=== PATIENT | male | born 1985 | race Caucasian/White ===

== ENCOUNTER 2017-03-08 02:45 | Inpatient (IN) | payer OTHER ==
[~2017-03-08] VITALS: Ht 182.9 cm; Wt 92.2 kg
[~2017-03-08 02:45] MED LIST: LORT7.5T3 PO; Z.0.NO CURRENT MEDS
[2017-03-08 02:58] VITALS: BP 118/75; PULSE 89; RESP 20; TEMP 98.9; O2SAT 96
[2017-03-08] MEDS ORDERED: SODIUM CHLOR 0.9% 1000 ML INJ 1,000 ML IV SCH (02:58)
[2017-03-08] MEDS ORDERED: DIPHTH/TETANUS/ACEL PERTUSSIS (BOOSTER) 0.5 ML VIAL/PFS IM ONE (03:00)
[2017-03-08] MEDS ORDERED: SODIUM CHLORIDE 0.9% FLUSH 10 ML FLUSH IVF PRN (03:00)
[2017-03-08] MEDS ORDERED: MORPHINE SULFATE 4 MG/ML INJ IV ONE (03:00)
[2017-03-08] MEDS ORDERED: ONDANSETRON HCL 4 MG/2 ML VIAL IVP ONE (03:00)
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
[2017-03-08 03:20] LABS: AUTOMATED NEUTROPHIL # 4.8 TH/MM3 (1.8-7.7); BASOPHIL # 0.1 TH/MM3 (0-0.2); BASOPHIL % 0.7 % (0.0-2.0); EOSINOPHIL # 0.2 TH/MM3 (0-0.4); HEMATOCRIT 44.4 % (39.0-51.0); HEMO FLAGS DIFF FINAL; LYMPH % 33.2 % (9.0-44.0); LYMPHOCYTE # 2.9 TH/MM3 (1.0-4.8); MEAN CELL VOLUME 93.6 FL (80.0-100.0); MEAN CORPUSCULAR HEMOGLOBIN 31.2 PG (27.0-34.0); MEAN CORPUSCULAR HGB CONC 33.4 % (32.0-36.0); MONO % 9.9 % (0.0-8.0); NEUT % 54.2 % (16.0-70.0); PLATELET COUNT 247 TH/MM3 (150-450); RED BLOOD COUNT 4.74 MIL/MM3 (4.50-5.90); RED CELL DISTRIBUTION WIDTH 13.5 % (11.6-17.2); WHITE BLOOD COUNT 8.8 TH/MM3 (4.0-11.0)
[2017-03-08 03:44] LABS: APTT (PATIENT) 21.7 SEC (24.3-30.1); PROTHROMBIN TIME - PATIENT 10.7 SEC (9.8-11.6)
[2017-03-08 03:46] LABS: BICARBONATE 28.3 MEQ/L (21.0-32.0); POTASSIUM 3.6 MEQ/L (3.5-5.1)
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
[2017-03-08 05:00] VITALS: BP 119/53; PULSE 92; RESP 14; O2SAT 95
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
[2017-03-08] MEDS ORDERED: IOHEXOL 350 MG/ML 10 ML VIAL (for RAD DIAG) IV ONE (05:43)
[2017-03-08] MEDS ORDERED: ACETAMINOPHEN 650 MG SUPP RECTAL PRN (05:45)
[2017-03-08] MEDS ORDERED: MORPHINE SULFATE 4 MG/ML INJ IV PUSH PRN ×2 (05:45→11:45)
[2017-03-08] MEDS ORDERED: ACETAMINOPHEN 325 MG TAB PO PRN ×2 (05:45→08:15)
[2017-03-08] MEDS ORDERED: ONDANSETRON HCL 4 MG/2 ML VIAL IV PRN (05:45)
[2017-03-08 06:05] VITALS: O2SAT 95
[2017-03-08] MEDS: NS + KCL 20 MEQ INJ 1,000 ML IV SCH ×3 (06:21→21:02)
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
[2017-03-08 07:24] VITALS: BP 102/55; TEMP 99
[2017-03-08] MEDS ORDERED: MIDAZOLAM HCL 2 MG/2 ML VIAL ONE (07:45)
[2017-03-08] MEDS ORDERED: fentaNYL CITRATE 250 MCG/5 ML AMP ONE ×2 (07:45→11:50)
[2017-03-08] MEDS ORDERED: ACETAMINOPHEN 1000 MG/100 ML VIAL IV ONE (07:45)
[2017-03-08] MEDS ORDERED: FAMOTIDINE 20 MG/2 ML VIAL ONE (07:45)
[2017-03-08] MEDS ORDERED: ARTIFICIAL TEARS OPTH OINT 3.5 APPLIC/3.5 GM TUBO ONE (07:45)
[2017-03-08] MEDS ORDERED: ENALAPRILAT 1.25 MG/ML VIAL IV PRN (08:15)
[2017-03-08] MEDS ORDERED: SODIUM CHLORIDE 0.9% FLUSH 10 ML FLUSH IV FLUSH PRN (08:15)
[2017-03-08] MEDS ORDERED: MAGNESIUM HYDROXIDE SUSP 30 ML CUP PO PRN (08:15)
[2017-03-08] MEDS: BACITRACIN TOP OINT 15 GM TUBE TOP SCH ×2 (09:00→21:00)
[2017-03-08] MEDS ORDERED: PANTOPRAZOLE SODIUM 40 MG VIAL IVP SCH (09:00)
[2017-03-08] MEDS ORDERED: ceFAZolin INJ 1,000 MG VIAL IV ONE (09:14)
[2017-03-08] MEDS ORDERED: VANCOMYCIN HCL 1000 MG VIAL OTHER ONE (09:20)
[2017-03-08] MEDS ORDERED: TRANEXAMIC ACID INJ 1,425 MG in SODIUM CHLORIDE 0.9% INJ 100 ML IV SCH ×2 (09:30→16:00)
[2017-03-08] MEDS ORDERED: GENTAMICIN SULFATE 80 MG/2 ML VIAL IRRIGATION ONE (09:34)
[2017-03-08 10:43] LABS: HEMATOCRIT 35.7 % (39.0-51.0); REVIEW FLAG FINAL
[2017-03-08] MEDS ORDERED: PROPOFOL 200 MG/20 ML AMP IV ONE (11:24)
[2017-03-08] MEDS ORDERED: NEOSTIGMINE 3 MG/3 ML SYR IV ONE (11:25)
[2017-03-08] MEDS ORDERED: PHENYLEPH/NS 1000 MCG/10 ML SYR IV ONE (11:25)
[2017-03-08] MEDS ORDERED: LACTATED RINGER'S 1000 ML INJ 4,000 ML IV ONE (11:25)
[2017-03-08] MEDS ORDERED: ONDANSETRON HCL 4 MG/2 ML VIAL IV PUSH ONE (11:25)
[2017-03-08] MEDS ORDERED: ePHEDrine/NS 25 MG/5 ML SYR IV ONE (11:25)
[2017-03-08] MEDS ORDERED: ERGOCALCIFEROL (VIT D2) 50,000 UNIT CAP PO ONE (11:45)
[2017-03-08] MEDS ORDERED: SODIUM CHLORIDE 0.9% FLUSH 5 ML FLUSH IVF PRN (11:45)
[2017-03-08] MEDS ORDERED: ACETAMINOPHEN/HYDROcodone 325 MG/7.5 MG TAB PO PRN (11:45)
--- NOTE | 2017-03-08 11:52 | PD.OP ---
cc: Roosevelt Gore MD Operative Report Date of Surgery: Mar 08, 2017 Preoperative Diagnosis: Right Midshaft femur fracture with bent plate and screws from previous surgery Postoperative Diagnosis: Procedure: Complex removal of hardware Intramedullary nail fixation right femur Anesthesia: Gen. Surgeon: Roosevelt Gore Search Coordinator(s): JONATAN Styles PA-C The surgical procedure was assisted by my physician hospital clinic assistant. My P.A. presence was necessary throughout this case for the manipulation and positioning of the surgical extremity. My P.A. was assisting me throughout the duration of this procedure. The skill set of a physician hospital clinic assistant was medically necessary to complete this procedure. During the surgical case the locate technician was working at the back table and the physician hospital clinic assistant was directly assisting me. Operation and Findings: Implants used: [12]mm x [440]mm Synthes TFNA troch nail Plan of activity: 50% weightbearing Patient was seen and evaluated preoperatively. The patient has significant hip pain from right femur fracture with a bent plate. The risk and benefits of surgery were discussed in depth with the patient to include bleeding, infection , nonunion, malunion, need for hip replacement, painful hardware, as well as medical competitions including blood clots, stroke, heart attack, and . Informed consent was obtained. Operative site was marked. Patient was brought to the operating room and placed on fracture table. IV sedation was administered by anesthesiologist. Timeout procedure was performed. Hip and leg were prepped with alcohol followed by DuraPrep and draped in the usual sterile fashion. IV antibiotics were given prior to incision. Procedure began with removal of deep hardware. A 10 inch incision was made through the lateral thigh through previous scar. Vastus lateralis was elevated anteriorly. There was significant scar tissue around the plate. Scar tissue was incised. There was also significant heterotopic bone. Rongeurs and osteotomes were used to remove the bone around the plate. The plate screws were now exposed. Using the screws was now loosened. The screws were now removed using a drill. One of the screws broke. 2 additional lag screws were also removed. At this point attention was turned to removal of plate. The osteotomes were placed underneath the plate. Getting the plate off of the lag screw in the femoral head was very difficult. Once the plate was mobilized it was removed. Using the broken screw removal set the broken screw was also removed. At this point attention was turned to removal of the lag screw for the femoral head. Attempt was made to use screwdrivers. The screw was very difficult to move. Large trial findings were now placed over the screw to aid in loosening. A screwdriver was used to remove the screw. Fluoroscopy confirmed removal of all hardware. Next attention was turned towards reduction of fracture. Traction was applied. The leg was manipulated to achieve reduction. Excellent reduction was achieved. Fluoroscopy was used to confirm reduction. A 2 inch incision was made proximal to the trochanter. Subcutaneous tissue was dissected bluntly. Guidepin was placed at the tip of the trochanter and advanced into the femoral canal. Fluoroscopy confirmed appropriate guidepin placement. A opening reamer was placed over the guidepin. A long ball tipped guide pin was now placed down the femoral canal into the center of the distal femur. The nail length was now measured. Fluoroscopy confirmed appropriate guidepin placement. Flexible reamers were now passed over the guidepin to ream the intramedullary canal. The Synthes TFNA nail was attached to the insertion handle. Nail was now placed over the guidepin into the femoral canal. Fluoroscopy confirmed appropriate nail placement. A second incision was made over the lateral thigh. Cannulas were placed through the insertion handle down to the femur. Guidepin was now placed through the femoral nail into the center of the femoral head. Fluoroscopy confirmed appropriate guidepin placement. Screw length was measured. Cannulated drill was placed over the guidepin. Appropriate length lag screw was now placed. The lag screw was locked in static mode. At this point, traction was released and compression was applied across the femoral shaft fracture. Next, using perfect table mountain technique two distal interlocking screws were placed. Screw holes were predrilled and screw lengths were measured. Final fluoroscopy revealed well aligned fracture with well-placed hardware. Incision was closed with #1 Vicryl, 3-0 Vicryl and faheem. Sterile dressings were applied. Patient was awakened and transferred to recovery room. Roosevelt Gore MD Mar 08, 2017 11:52
[2017-03-08 12:20] LABS: HEMATOCRIT 35.5 % (39.0-51.0); REVIEW FLAG FINAL
[2017-03-08] MEDS ORDERED: DO NOT ADM ANY ANTICOAGULANT DRUGS PRN (12:45)
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
[2017-03-08] MEDS ORDERED: *MEPERIDINE 25 MG INJ VIAL PERIprocedural Use ONLY ONE (14:03)
[2017-03-08] MEDS ORDERED: *morphine SULFATE 8 MG/ML PERIprocedure ONLY ONE ×3 (14:28→15:03)
[2017-03-08] MEDS: SODIUM CHLORIDE 0.9% FLUSH 10 ML FLUSH IV FLUSH SCH ×2 (16:10→21:00)
--- NOTE | 2017-03-08 16:21 | RADRPT ---
EXAM DATE/TIME: 03/08/2017 11:22 [facility] COMPARISON: FEMUR RIGHT (AP & LAT/2VWS), March 08, 2017, 3:17. INDICATIONS : Right femur fracture, old hardware removal, and new placement of intermedullary nail. OR. MEDICAL HISTORY : Cardiovascular disease. SURGICAL HISTORY : Femur fracture repair, right. ENCOUNTER: Initial ACUITY: 1 day PAIN SCORE: Non-responsive. LOCATION: Right femur FINDINGS: 6 intraoperative spot images of the right femur. Right hip screw and intramedullary cordell in place acro ss fracture. 2 distal transfixing screws. CONCLUSION: Intraoperative images showing right femur fracture with new internal fixation hardware in place. Heri Dowsn MD on March 08, 2017 at 16:19 Board Certified Radiologist. This report was verified electronically.
[2017-03-08] MEDS: ceFAZolin 2 GM PREMIX 50 ML IV SCH (17:00)
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
[2017-03-08 17:59] LABS: HEMATOCRIT 35.4 % (39.0-51.0); REVIEW FLAG FINAL
[2017-03-08] MEDS: CALCIUM/VITAMIN D 250 MG/125 U TAB PO SCH ×2 (18:00→21:01)
[2017-03-08] MEDS: ONDANSETRON HCL 4 MG/2 ML VIAL IV PRN ×2 (18:27→23:27)
[2017-03-08] MEDS: SODIUM CHLORIDE 0.9% FLUSH 10 ML FLUSH IVF PRN (18:28)
[2017-03-08 19:03] VITALS: BP 124/65; PULSE 99; RESP 22; TEMP 97.7; O2SAT 97
[2017-03-08] MEDS: DOCUSATE SODIUM 50 MG/SENNA 8.6 MG TAB PO SCH (21:00)
[2017-03-08] MEDS: SODIUM CHLORIDE 0.9% FLUSH 5 ML FLUSH IVF SCH (21:00)
[2017-03-08] MEDS: FOLIC ACID 1 MG TAB PO SCH (21:01)
[2017-03-08] MEDS: MULTIVITAMIN TAB PO SCH (21:01)
[2017-03-08] MEDS: THIAMINE HCL 100 MG TAB PO SCH (21:01)
[2017-03-08] MEDS: MORPHINE SULFATE 8 MG/ML INJ IV PUSH PRN (23:28)
[2017-03-09] VITALS (7 sets, daily range): BP systolic 128–151; BP diastolic 66–75; PULSE 88–106; RESP 16–18; TEMP 96.5–98.9; O2SAT 94–100
[2017-03-09] MEDS: ceFAZolin 2 GM PREMIX 50 ML IV SCH ×3 (01:19→16:19)
[2017-03-09] MEDS: ACETAMINOPHEN/HYDROcodone 325 MG/10 MG TAB PO PRN ×3 (01:33→10:05)
[2017-03-09] MEDS: NS + KCL 20 MEQ INJ 1,000 ML IV SCH (05:23)
[2017-03-09 07:14] LABS: BASOPHIL % 0.3 % (0.0-2.0); EOSINOPHIL % 0.2 % (0.0-4.0); HEMATOCRIT 31.4 % (39.0-51.0); HEMO FLAGS DIFF FINAL; LYMPH % 9.8 % (9.0-44.0); LYMPHOCYTE # 0.8 TH/MM3 (1.0-4.8); MEAN CELL VOLUME 92.9 FL (80.0-100.0); MEAN CORPUSCULAR HEMOGLOBIN 32.1 PG (27.0-34.0); MEAN CORPUSCULAR HGB CONC 34.5 % (32.0-36.0); MONO % 15.9 % (0.0-8.0); NEUT % 73.8 % (16.0-70.0); PLATELET COUNT 212 TH/MM3 (150-450); RED BLOOD COUNT 3.38 MIL/MM3 (4.50-5.90); RED CELL DISTRIBUTION WIDTH 13.8 % (11.6-17.2); WHITE BLOOD COUNT 8.1 TH/MM3 (4.0-11.0)
[2017-03-09] MEDS ORDERED: HYDR-3583 PO (07:28)
[2017-03-09] MEDS ORDERED: XARE10TA PO (07:28)
[2017-03-09] MEDS ORDERED: WALKER/ADULT/FO1 MIS (07:28)
--- NOTE | 2017-03-09 07:32 | PD.ORT.PN ---
Subjective Subjective Remarks POD 1 s/p WILMER and IMN right femur doing well. reports pain. has not been out of bed yet Objective Vitals Vital Signs Date Time Temp Pulse Resp B/P Pulse Ox O2 Delivery O2 Flow Rate FiO2 03/09/17 04:00 Room Air 03/09/17 00:00 Room Air 03/09/17 00:00 98.7 95 17 134/67 99 03/08/17 20:00 Room Air 03/08/17 19:03 97.7 99 22 124/65 97 03/08/17 18:00 98.2 88 16 136/64 100 Room Air 03/08/17 17:30 93 16 130/63 100 Room Air 03/08/17 17:15 100 16 121/65 97 Room Air 03/08/17 17:00 93 16 126/67 97 Room Air 03/08/17 16:45 91 15 127/58 97 Room Air 03/08/17 16:15 98 15 164/70 99 Room Air 03/08/17 16:00 98 16 164/70 99 Room Air 03/08/17 15:45 99 16 158/72 98 Room Air 03/08/17 15:15 97 17 158/70 98 Room Air 03/08/17 15:00 104 15 144/66 98 Room Air 03/08/17 14:45 107 15 145/56 98 Room Air 03/08/17 14:30 105 15 154/69 98 Room Air 03/08/17 14:15 101 15 174/77 94 Room Air 03/08/17 14:04 98.6 119 15 164/113 96 Room Air I/O 03/08/17 03/08/17 03/08/17 03/09/17 03/09/17 03/09/17 07:00 15:00 23:00 07:00 15:00 23:00 Intake Total 1000 ml 4000 ml 2171 ml 834 ml Output Total 2000 ml 3150 ml 950 ml Balance 1000 ml 2000 ml -979 ml -116 ml Intake Oral 480 ml IV Total 1000 ml 1691 ml 834 ml Other 4000 ml Output Urine Total 1200 ml 3150 ml 950 ml Estimated Blood Loss 800 ml # Bowel Movements 0 Result Diagram: 03/09/17 0631 03/08/17 0300 Imaging Last 24 hours Impressions Pelvis X-Ray 03/08/17 0258 Signed Impressions: Service Date/Time: March 03:13 - CONCLUSION: No acute pelvic injury Bunny Curtis MD Head CT 03/08/17257 Signed Impressions: Service Date/Time: March 04:38 - CONCLUSION: No acute intracranial injury Bunny Curtis MD Chest X-Ray 03/08/17257 Signed Impressions: Service Date/Time: March 03:26 - CONCLUSION: No acute disease. Bunny Curtis MD Cervical Spine CT 03/08/17257 Signed Impressions: Service Date/Time: March 04:41 - CONCLUSION: No acute bony injury in the cervical spine. Bunny Curtis MD Abdomen/Pelvis CT 03/08/17257 Signed Impressions: Service Date/Time: March 04:44 - CONCLUSION: No acute injury in the abdomen or pelvis. Bunny Curtis MD Maxillofacial CT 03/08/17 0000 Signed Impressions: Service Date/Time: March 04:41 - CONCLUSION: No evidence of facial fracture Bunny Curtis MD Femur X-Ray 03/08/17 0000 Signed Impressions: Service Date/Time: March 03:17 - CONCLUSION: Proximal femoral fracture fixation. Bunny Curtis MD Objective Remarks RLE: moderate amount of serosanguinous drainage right leg dressings. NVI distally. neg zacarias. Assessment & Plan Assessment and Plan 1) Right Periprosthetic Femur Fx s/p Removal of HW and IMN Right Femur - POD 1 -50%WB -daily dressing changes -DVT prophylaxis with lovenox and transition to xarelto on discharge -plan for discharge Sun/Mon depending on progress with therapy -f/u with [facility] or [facility] in 2 weeks Adalberto Tierney Mar 09, 2017 07:32
[2017-03-09 07:34] LABS: ALT (GPT) 39 U/L (12-78); ANION GAP 6 MEQ/L (5-15); AST (GOT) 64 U/L (15-37); BICARBONATE 31.3 MEQ/L (21.0-32.0); BLOOD UREA NITROGEN 11 MG/DL (7-18); CHLORIDE 103 MEQ/L (98-107); GLOMERULAR FILTRATION RATE 107 ML/MIN (>89); SODIUM (NA) 140 MEQ/L (136-145)
[2017-03-09 07:36] LABS: ALKALINE PHOSPHATASE 41 U/L (45-117); TOTAL BILIRUBIN ADULT 0.9 MG/DL (0.2-1.0)
[2017-03-09] MEDS: SODIUM CHLORIDE 0.9% FLUSH 10 ML FLUSH IV FLUSH SCH ×2 (08:18→21:31)
[2017-03-09] MEDS: SODIUM CHLORIDE 0.9% FLUSH 5 ML FLUSH IVF SCH ×2 (08:19→21:00)
[2017-03-09] MEDS: THIAMINE HCL 100 MG TAB PO SCH (08:19)
[2017-03-09] MEDS: CHOLECALCIFEROL (VIT D3) 5000 UNIT CAP PO SCH (08:19)
[2017-03-09] MEDS: FAMOTIDINE 20 MG TAB PO SCH ×2 (08:19→21:31)
[2017-03-09] MEDS: CALCIUM/VITAMIN D 250 MG/125 U TAB PO SCH ×3 (08:19→17:17)
[2017-03-09] MEDS: MULTIVITAMIN TAB PO SCH (08:19)
[2017-03-09] MEDS: FOLIC ACID 1 MG TAB PO SCH (08:19)
[2017-03-09] MEDS: BACITRACIN TOP OINT 15 GM TUBE TOP SCH ×2 (08:20→21:00)
[2017-03-09] MEDS: MORPHINE SULFATE 8 MG/ML INJ IV PUSH PRN ×2 (08:20→11:49)
[2017-03-09] MEDS: ONDANSETRON HCL 4 MG/2 ML VIAL IV PRN (08:20)
[2017-03-09] MEDS: DOCUSATE SODIUM 50 MG/SENNA 8.6 MG TAB PO SCH ×2 (08:37→21:31)
[2017-03-09] MEDS: METHOCARBAMOL 500 MG TAB PO SCH ×3 (08:37→21:31)
[2017-03-09] MEDS ORDERED: oxyCODONE/ACETAMINOPHEN 5 MG/325 MG TAB PO PRN (10:15)
[2017-03-09] MEDS: SODIUM CHLORIDE 0.9% FLUSH 10 ML FLUSH IVF PRN ×2 (11:50→17:18)
[2017-03-09] MEDS: oxyCODONE/ACETAMINOPHEN 5 MG/325 MG TAB PO PRN ×3 (13:05→21:31)
[2017-03-09] MEDS: ENOXAPARIN SODIUM 40 MG/0.4 ML SYRINGE SQ SCH (13:06)
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
[2017-03-09] MEDS: diphenhydrAMINE HCL 25 MG CAP PO PRN (17:17)
[2017-03-09] MEDS ORDERED: CRUT48MI (18:46)
--- NOTE | 2017-03-09 19:13 | HHI.PR ---
Subjective Patient symptoms today c/o pain in scrotum. denies fevers, chill Objective Vital Signs Vital Signs Date Time Temp Pulse Resp B/P Pulse Ox O2 Delivery O2 Flow Rate FiO2 03/09/17 19:09 Room Air 03/09/17 18:40 99 21 03/09/17 16:00 96.5 106 16 128/66 94 03/09/17 12:00 98.9 89 16 140/75 99 03/09/17 10:35 100 03/09/17 08:40 Room Air 03/09/17 08:00 97.6 96 16 129/75 100 03/09/17 04:00 Room Air 03/09/17 00:00 Room Air 03/09/17 00:00 98.7 95 17 134/67 99 03/08/17 20:00 Room Air Intake & Output 03/09/17 03/09/17 07:00 19:00 Intake Total 2255 ml 720 ml Output Total 3450 ml Balance -1195 ml 720 ml Intake Oral 480 ml 720 ml IV Total 1775 ml Output Urine Total 3450 ml # Voids 4 # Bowel Movements 0 0 Result Diagram: 03/09/17 0631 03/09/17 0631 Objective Remarks NAD. A/O x 3 right scrotal laceration with clean edges, sutures in place. No drainage or erythema. Testes normal size and consistency Medications and IVs Current Medications Medications (Trade) Dose Ordered Sig/Isidoro Route Start Time Stop Time Status Last Admin (Tylenol Supp) 650 mg Q4H PRN RECTAL 03/08/17 05:45 (NS Flush) 2 ml BID IV FLUSH 03/08/17 09:00 03/09/17 08:18 (NS Flush) 2 ml UNSCH PRN IVF 03/08/17 05:45 03/09/17 17:18 (Tylenol) 650 mg Q6H PRN PO 03/08/17 08:15 (Vasotec Inj) 1.25 mg Q8H PRN IV 03/08/17 08:15 (Zofran Inj) 4 mg Q6H PRN IV 03/08/17 08:15 03/09/17 08:20 (Baciguent Oint) 1 applic BID TOP 03/08/17 09:00 03/09/17 08:20 (Folate) 1 mg DAILY PO 03/08/17 09:00 03/11/17 08:59 03/09/17 08:19 (Vitamin B1) 100 mg DAILY PO 03/08/17 09:00 03/11/17 08:59 03/09/17 08:19 (Theragran) 1 tab DAILY PO 03/08/17 09:00 03/11/17 08:59 03/09/17 08:19 (Milk Of Magnesia Liq) 30 ml Q6H PRN PO 03/08/17 08:15 03/09/17 08:18 (Cherise-Colace) 2 tab BID PO 03/08/17 09:00 03/09/17 08:37 (NS Flush) 2 ml UNSCH PRN IVF 03/08/17 11:45 (NS Flush) 2 ml BID IVF 03/08/17 21:00 (Lovenox Inj) 40 mg Q24H SQ 03/09/17 13:00 03/09/17 13:06 (Oscal-D 250-125) 250 mg TID PO 03/08/17 13:00 03/09/17 17:17 (Benadryl) 25 mg Q6H PRN PO 03/08/17 11:45 03/09/17 17:17 Cholecalciferol 5000 units 5,000 units DAILY PO 03/09/17 09:00 03/09/17 08:19 (Ancef 2 Gm Premix) 50 ml @ 100 mls/hr Q8H IV 03/08/17 17:00 03/10/17 09:29 03/09/17 16:19 (Morphine Inj) 5 mg Q3H PRN IV PUSH 03/08/17 12:15 03/09/17 11:49 (Robaxin) 500 mg Q8HR PO 03/09/17 07:15 03/09/17 16:16 (Pepcid) 20 mg BID PO 03/09/17 09:00 03/09/17 08:19 (Percocet 5-325 Mg) 1 tab Q4H PRN PO 03/09/17 10:15 (Percocet 5-325 Mg) 2 tab Q4H PRN PO 03/09/17 10:15 03/09/17 17:17 Assessment and Plan Assessment and Plan s/p Repair of Right Scrotal Laceration -Ok to d/c per Urology -May shower. No standing water -F/U in 10 days for suture removal. Guillaume Mccormick MD Mar 09, 2017 19:13
[2017-03-10 00:36] VITALS: BP 116/57; PULSE 84; RESP 18; TEMP 96.8; O2SAT 96
[2017-03-10] MEDS: oxyCODONE/ACETAMINOPHEN 5 MG/325 MG TAB PO PRN ×6 (01:21→23:27)
[2017-03-10] MEDS: diphenhydrAMINE HCL 25 MG CAP PO PRN ×4 (01:21→22:32)
[2017-03-10] MEDS: ceFAZolin 2 GM PREMIX 50 ML IV SCH ×2 (05:32→12:41)
[2017-03-10] MEDS: METHOCARBAMOL 500 MG TAB PO SCH ×3 (05:32→22:29)
[2017-03-10 06:39] LABS: REVIEW FLAG FINAL
--- NOTE | 2017-03-10 07:37 | PD.ORT.PN ---
Subjective Subjective Remarks pt complains of constipation decreased pain would like to go back to [place] tomorrow with his fiance who is flying out tomorrow Objective Vitals Vital Signs Date Time Temp Pulse Resp B/P Pulse Ox O2 Delivery O2 Flow Rate FiO2 03/10/17 00:36 96.8 84 18 116/57 96 03/09/17 20:45 97.3 88 18 151/69 98 03/09/17 19:09 Room Air 03/09/17 18:40 99 21 03/09/17 16:00 96.5 106 16 128/66 94 03/09/17 12:00 98.9 89 16 140/75 99 03/09/17 10:35 100 03/09/17 08:40 Room Air 03/09/17 08:00 97.6 96 16 129/75 100 I/O 03/09/17 03/09/17 03/09/17 03/10/17 03/10/17 03/10/17 07:00 15:00 23:00 07:00 15:00 23:00 Intake Total 834 ml 720 ml 240 ml 240 ml Output Total 950 ml 600 ml Balance -116 ml 720 ml 240 ml -360 ml Intake Oral 720 ml 240 ml 240 ml IV Total 834 ml Output Urine Total 950 ml 600 ml # Voids 4 1 # Bowel Movements 0 0 Result Diagram: 03/10/17 0600 03/09/17 0631 Imaging Last 24 hours Impressions Pelvis X-Ray 03/08/17257 Signed Impressions: Service Date/Time: March 03:13 - CONCLUSION: No acute pelvic injury Bunny Curtis MD Head CT 03/08/17257 Signed Impressions: Service Date/Time: March 04:38 - CONCLUSION: No acute intracranial injury Bunny Curtis MD Chest X-Ray 03/08/17257 Signed Impressions: Service Date/Time: March 03:26 - CONCLUSION: No acute disease. Bunny Curtis MD Cervical Spine CT 03/08/17257 Signed Impressions: Service Date/Time: March 04:41 - CONCLUSION: No acute bony injury in the cervical spine. Bunny Curtis MD Abdomen/Pelvis CT 03/08/17257 Signed Impressions: Service Date/Time: March 04:44 - CONCLUSION: No acute injury in the abdomen or pelvis. Bunny Curtis MD Maxillofacial CT 03/08/17 0000 Signed Impressions: Service Date/Time: March 04:41 - CONCLUSION: No evidence of facial fracture Bunny Curtis MD Femur X-Ray 03/08/17 0000 Signed Impressions: Service Date/Time: March 03:17 - CONCLUSION: Proximal femoral fracture fixation. Bunny Curtis MD Objective Remarks seen by Dr. Garett Pickett patient up ambulating on walker Right leg dressings dry and intact NVI distally neg zacarias. Assessment & Plan Assessment and Plan 1) Right Periprosthetic Femur Fx s/p Removal of HW and IMN Right Femur - POD #2 -50%WB RLE -daily dressing changes -DVT prophylaxis with lovenox and transition to xarelto on discharge -discharge home tomorrow, trying to obtain fly out of [place], [place] back to [place] with anjali -case management consult -f/u with [facility] or [facility] in 2 weeks Katelynn Hansen Mar 10, 2017 07:37
[2017-03-10 08:00] VITALS: BP 140/86; PULSE 99; RESP 18; TEMP 99; O2SAT 97
[2017-03-10] MEDS: SODIUM CHLORIDE 0.9% FLUSH 5 ML FLUSH IVF SCH ×2 (09:00→21:00)
[2017-03-10 09:16] VITALS: O2SAT 98
[2017-03-10] MEDS: FAMOTIDINE 20 MG TAB PO SCH ×2 (09:26→22:29)
[2017-03-10] MEDS: CALCIUM/VITAMIN D 250 MG/125 U TAB PO SCH ×3 (09:26→17:19)
[2017-03-10] MEDS: DOCUSATE SODIUM 50 MG/SENNA 8.6 MG TAB PO SCH ×2 (09:26→22:29)
[2017-03-10] MEDS: THIAMINE HCL 100 MG TAB PO SCH (09:26)
[2017-03-10] MEDS: FOLIC ACID 1 MG TAB PO SCH (09:26)
[2017-03-10] MEDS: MULTIVITAMIN TAB PO SCH (09:26)
[2017-03-10] MEDS: CHOLECALCIFEROL (VIT D3) 5000 UNIT CAP PO SCH (09:26)
[2017-03-10] MEDS: BACITRACIN TOP OINT 15 GM TUBE TOP SCH ×2 (09:40→22:34)
[2017-03-10 12:00] VITALS: BP 126/67; PULSE 83; RESP 18; TEMP 96.7; O2SAT 98
[2017-03-10] MEDS: ENOXAPARIN SODIUM 40 MG/0.4 ML SYRINGE SQ SCH (12:41)
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
[2017-03-10] MEDS ORDERED: LACTULOSE SYRUP 20 GM/30 ML CUP PO PRN (13:30)
[2017-03-10] MEDS ORDERED: LACTULOSE SYRUP 20 GM/30 ML CUP PO ONE (13:30)
[2017-03-10 16:00] VITALS: BP 121/74; PULSE 89; RESP 18; TEMP 99; O2SAT 99
[2017-03-10] MEDS ORDERED: PERC5TAB12 PO (16:10)
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
[2017-03-10 20:00] VITALS: BP 123/66; PULSE 89; RESP 18; TEMP 99.5; O2SAT 99
[2017-03-11] VITALS: BP 113/55; PULSE 82; RESP 18; TEMP 98.4; O2SAT 97
[2017-03-11 04:00] VITALS: BP 112/61; PULSE 76; RESP 18; TEMP 97.2; O2SAT 98
[2017-03-11] MEDS: METHOCARBAMOL 500 MG TAB PO SCH (05:43)
[2017-03-11] MEDS: oxyCODONE/ACETAMINOPHEN 5 MG/325 MG TAB PO PRN ×2 (05:44→09:29)
[2017-03-11 08:00] VITALS: BP 107/62; PULSE 84; RESP 18; TEMP 99; O2SAT 98
--- NOTE | 2017-03-11 08:19 | PD.ORT.PN ---
Subjective Subjective Remarks patient doing better, has flight out of [place] back to [place] today ready to be discharged Objective Vitals Vital Signs Date Time Temp Pulse Resp B/P Pulse Ox O2 Delivery O2 Flow Rate FiO2 03/11/17 04:00 97.2 76 18 112/61 98 03/11/17 00:00 98.4 82 18 113/55 97 03/10/17 20:00 99.5 89 18 123/66 99 03/10/17 16:00 99.0 89 18 121/74 99 03/10/17 12:00 96.7 83 18 126/67 98 03/10/17 09:16 98 21 I/O 03/10/17 03/10/17 03/10/17 03/11/17 03/11/17 03/11/17 07:00 15:00 23:00 07:00 15:00 23:00 Intake Total 240 ml 720 ml 780 ml 480 ml Output Total 600 ml 800 ml Balance -360 ml 720 ml 780 ml -320 ml Intake Oral 240 ml 720 ml 780 ml 480 ml Output Urine Total 600 ml 800 ml # Voids 3 1 # Bowel Movements 2 0 0 Result Diagram: 03/10/17 0600 03/09/17 0631 Imaging Last 24 hours Impressions Pelvis X-Ray 03/08/17257 Signed Impressions: Service Date/Time: March 03:13 - CONCLUSION: No acute pelvic injury Bunny Curtis MD Head CT 03/08/17257 Signed Impressions: Service Date/Time: March 04:38 - CONCLUSION: No acute intracranial injury Bunny Curtis MD Chest X-Ray 03/08/17257 Signed Impressions: Service Date/Time: March 03:26 - CONCLUSION: No acute disease. Bunny Curtis MD Cervical Spine CT 03/08/178 Signed Impressions: Service Date/Time: March 04:41 - CONCLUSION: No acute bony injury in the cervical spine. Bunny Curtis MD Abdomen/Pelvis CT 03/08/178 Signed Impressions: Service Date/Time: March 04:44 - CONCLUSION: No acute injury in the abdomen or pelvis. Bunny Curtis MD Maxillofacial CT 03/08/17 0000 Signed Impressions: Service Date/Time: March 04:41 - CONCLUSION: No evidence of facial fracture Bunny Curtis MD Femur X-Ray 03/08/17 0000 Signed Impressions: Service Date/Time: March 03:17 - CONCLUSION: Proximal femoral fracture fixation. Bunny Curtis MD Objective Remarks seen by Dr. Garett Pickett right leg dressings dry and intact NVI distally neg zacarias. Assessment & Plan Assessment and Plan 1) Right Periprosthetic Femur Fx s/p Removal of HW and IMN Right Femur - POD #3 -50%WB RLE -daily dressing changes -DVT prophylaxis xarelto on discharge -discharge today, patient is flying to [place] but is going to fly back for appt with [facility] -f/u with [facility] or [facility] in 2 weeks Katelynn Hansen Mar 11, 2017 08:19
[2017-03-11] MEDS: CHOLECALCIFEROL (VIT D3) 5000 UNIT CAP PO SCH (08:28)
[2017-03-11] MEDS: CALCIUM/VITAMIN D 250 MG/125 U TAB PO SCH (08:28)
[2017-03-11] MEDS: FAMOTIDINE 20 MG TAB PO SCH (08:28)
[2017-03-11] MEDS: SODIUM CHLORIDE 0.9% FLUSH 5 ML FLUSH IVF SCH (08:28)
[2017-03-11] MEDS: DOCUSATE SODIUM 50 MG/SENNA 8.6 MG TAB PO SCH (08:28)
[2017-03-11] MEDS: BACITRACIN TOP OINT 15 GM TUBE TOP SCH (08:30)
[2017-03-11] MEDS: ENOXAPARIN SODIUM 40 MG/0.4 ML SYRINGE SQ SCH (08:32)
[2017-03-11] MEDS: diphenhydrAMINE HCL 25 MG CAP PO PRN (09:29)
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
== END 2017-03-11 10:03 | disposition home or self-care (01) | DRG 481 ==
LOC: NEPE 02:45 → NEDA 05:35 → N06B 18:15
PROVIDERS: ADMIT Surgery; ATTEND Surgery
PROC: 0QS8XZZ Reposition Right Femoral Shaft, External Approach (ICD-10-PCS; 2017-03-08)
PROC: 0VQ5XZZ Repair Scrotum, External Approach (ICD-10-PCS; 2017-03-08)
PROC: 0QH836Z Insertion of Intramedullary Internal Fixation Device into Right Femoral Shaft, Percutaneous Approach (ICD-10-PCS; principal; 2017-03-08 08:53)
PROC: 0QP804Z Removal of Internal Fixation Device from Right Femoral Shaft, Open Approach (ICD-10-PCS; 2017-03-08 08:53)
DX: S72.301A Unspecified fracture of shaft of right femur, initial encounter for closed fracture (principal); T84.398A Other mechanical complication of other bone devices, implants and grafts, initial encounter; S31.31XA Laceration without foreign body of scrotum and testes, initial encounter; S00.81XA Abrasion of other part of head, initial encounter; S60.512A Abrasion of left hand, initial encounter; S60.511A Abrasion of right hand, initial encounter; V29.88XA Motorcycle rider (driver) (passenger) injured in other specified transport accidents, initial encounter; Y92.410 Unspecified street and highway as the place of occurrence of the external cause; F10.129 Alcohol abuse with intoxication, unspecified; Y90.7 Blood alcohol level of 200-239 mg/100 ml; K59.00 Constipation, unspecified
CPT/HCPCS: 70450; 70486; 71010; 72125; 72170; 73552; 74177; 76000; 80048; 80053; 80307; 82948; 85014; 85018; 85025; 85610; 85730; 86850; 86900; 86901; 86920; 90715; 94150; 96361; 96374; 96375; C1713; C9113; J0131; J0690; J1580; J1650; J2175; J2250; J2270; J2370; J2405; J2710; J3010; J3370; J3480; J7030; J7120; Q9967